=== PATIENT | male | born 1975 | race Caucasian/White ===

== ENCOUNTER → 2021-08-26 14:43 | Outpatient (CLI) | payer OTHER, SELFPAY | PROVIDERS: Visit Provider Nurse Practitioner | DX: U07.1 COVID-19 (principal) | CPT/HCPCS: C9803; U0003; U0005 ==

== ENCOUNTER 2022-11-05 16:40 | Emergency (ER) | payer OTHER, SELFPAY ==
[2022-11-05 16:45] VITALS: BMI 33.9
--- NOTE | 2022-11-05 16:46 | XR_ITS ---
PROCEDURE INFORMATION: Exam: XR Right Knee Exam date and time: 11/05/2022 4:45 PM Age: 47 years old Clinical indication: Pain; Knee; Right; Additional info: King knee pop TECHNIQUE: Imaging protocol: Radiologic exam of the right knee. Views: 3 views. COMPARISON: No relevant prior studies available. FINDINGS: Bones/joints: Osseous alignment is normal. No acute fracture or joint fluid. There is mild joint space narrowing and spurring in the patellofemoral compartment. No other arthritic change. Soft tissues: Normal. IMPRESSION: Mild degenerative changes of the patellofemoral compartment. No acute abnormality.
[2022-11-05 17:00] VITALS: BP 179/88; PULSE 84; RESP 20; TEMP 36.7; O2SAT 97; BMI 47.5
--- NOTE | 2022-11-05 17:37 | EXP.UTC ---
Discharge Plan Disposition Patient Disposition: Home, Self-Care Condition: Good Prescriptions Prescriptions: New prednisone [prednisone] 20 mg tablet 20 mg PO BID Qty: 10 0RF No Action lisinopril 40 MG tablet 40 mg PO DAILY oxycodone-acetaminophen 1 EACH tablet 1 tab PO Q8H PRN (Reason: Moderate To Severe Pain) 3 Days Qty: 10 0RF tamsulosin 0.4 MG capsule 0.4 mg PO HS 15 Days Qty: 15 0RF Referrals Follow up/Referrals: Provider,Referral, MD [Primary Care Provider] - See instructions Clinical Impressions Clinical Impression: Joint pain Instructions Patient Instructions: DI for Knee Pain Discharge ED Provider: Jose ([facility])Stephanie [facility] [place] HPI General Stated complaint: right knee pop and pain Mode of Arrival: Ambulatory Source of Information: Patient Limitations: No Limitations Time Seen by Provider: 11/05/22 17:37 Description of Symptoms (Recalled from Triage Doc. by RN): PATIENT C/O PAIN TO LEFT KNEE WITH WALKING. HE REPORTS FEELING A POP WHILE WALKING AND IT HAS BEEN HURTING SINCE HEENT Symptoms (Recalled from RN notes): No Resp Symptoms (Recalled from RN notes): No Skin Symptoms (Recalled from RN notes): No MS Symptoms (Recalled from RN notes): Yes Functional Status (Recalled from RN notes): WNL History of Present Illness Provider Complaint: 47 yr old male presents for left knee pain. pt states while walking yesterday he felt a pop and knee has been hurting since Related Data Home Medications Medication Instructions Recorded Confirmed lisinopril 40 mg tablet 40 mg PO DAILY Hypertension 04/05/19 11/05/22 Previous Rx's Medication Instructions Recorded oxycodone-acetaminophen 10 mg-325 1 tab PO Q8H PRN Moderate To 04/05/19 mg tablet Severe Pain 3 days #10 tabs tamsulosin 0.4 mg capsule 0.4 mg PO HS 15 days #15 caps 04/05/19 prednisone 20 mg tablet 20 mg PO BID #10 tabs 11/05/22 Allergies Allergy/AdvReac Type Severity Reaction Status Date / Time No Known Drug Allergies Allergy Unknown Verified 04/17/19 12:11 [NKDA] Worker's Comp Is this a Worker's Comp case?: [facility] Disclaimer: The information contained in this section may have been updated after the patient was seen, as this information can be updated by other users. Social History , [employer]) Smoking Status: Never smoker alcohol intake: never current occupational status: other Travel in the last 8 weeks: None ROS Obtained: Yes All systems reviewed & no additional complaints except as documented Constitutional Constitutional: Reports system reviewed and no additional complaints, except as documented and Reports as per HPI Eyes Eyes: Reports system reviewed and no additional complaints, except as documented and Reports as per HPI ENT Ears, Nose, Mouth, and Throat: Reports system reviewed and no additional complaints, except as documented Cardiovascular Cardiovascular: Reports system reviewed and no additional complaints, except as documented Respiratory Respiratory: Reports system reviewed and no additional complaints, except as documented Gastrointestinal Gastrointestingal: Reports system reviewed and no additional complaints, except as documented Musculoskeletal Musculoskeletal: Reports system reviewed and no additional complaints, except as documented, Reports as per HPI, Reports arthralgias, Reports joint swelling and Reports limited range of motion Integumentary/Breasts Skin/Breast: Reports system reviewed and no additional complaints, except as documented Neurologic Neurologic: Reports system reviewed and no additional complaints, except as documented Endocrine Endocrine: Reports system reviewed and no additional complaints, except as documented Physical Exam General General appearance: alert and in no apparent distress Head Head exam: atraumatic and normocephalic Eye Eye exam: Present normal appearance and PERRL ENT ENT exam: Pres
[2022-11-05 17:42] VITALS: BP 179/88; PULSE 84; RESP 20; TEMP 36.7; O2SAT 97
== END 2022-11-05 17:45 | disposition home or self-care (01) ==
PROVIDERS: Emergency Provider Nurse Practitioner Family
DX: M25.562 Pain in left knee (principal); X50.1XXA Overexertion from prolonged static or awkward postures, initial encounter
CPT/HCPCS: 73562; 99212; 99214; G0463

== ENCOUNTER → 2023-01-29 14:29 | Outpatient (CLI) | payer OTHER, SELFPAY ==
--- NOTE | 2023-01-29 14:32 | MR_ITS ---
FINAL REPORT CLINICAL HISTORY: KNEE PAIN. KNEE LOCKS UP. PAIN SUPERIOR TO PATELLA. NO INJURY OR TRAUMA FINDINGS: Multiplanar MR imaging of the right knee was performed without contrast. There is a tear of the body of the medial meniscus. Lateral meniscus is intact. The anterior and posterior cruciate ligaments are intact. There is a sprain of the medial collateral ligament. Lateral collateral ligament complex is intact. There is distal patellar tendinitis. No tendon tear is identified. There is no evidence of fracture. 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 Severe chondromalacia is also seen of the medial compartment where there are small osteochondral lesions of the medial femoral condyle and medial tibial plateau with associated bone marrow edema. A moderate sized joint effusion is seen. The musculature is intact. No soft tissue mass or cyst is identified. IMPRESSION: Tear of the body of the medial meniscus. Sprain of the MCL. Distal patellar tendinitis. Severe chondromalacia of the medial compartment with small osteochondral lesions of the medial femoral condyle and medial tibial plateau and associated bone marrow edema. Moderate joint effusion. Reviewed, Interpreted and Dictated by Ezio Manjarrez III, MD Transcribed by Dalia Garduno Authenticated and [facility]
== END ==
LOC: RAD 14:29
PROVIDERS: PCP Orthopaedic Surgery; Visit Provider Orthopaedic Surgery
DX: M25.561 Pain in right knee (principal)
CPT/HCPCS: 73721

== ENCOUNTER 2023-02-28 10:28 | Day surgery (SDC) | payer OTHER, SELFPAY ==
[2023-02-28] VITALS (7 sets, daily range): BP systolic 89–134; BP diastolic 40–79; PULSE 53–73; RESP 16–18; TEMP 36.1–36.8; O2SAT 92–99; BMI 45.1
--- NOTE | 2023-02-28 13:03 | P.PCN_ITS ---
Procedure: Date: 02/28/23 Patient Date of :: 1975 Procedure Performed:: Colonoscopy Indications:: High risk screening for a family history of colon cancer in a first degree relative age greater than 60 (mother) Performing Provider:: Benjamin Naylor MD Referring Provider:: Chan De La Torre MD Sedation:: See Rn records Procedure:: After placing the patient in the left lateral decubitus position, the colono scopy was gently inserted into the rectum and under direct visualization advanced to the cecum which was identified by transillumination in the right lower quadrant, identification of the ileocecal valve, appendiceal orifice, and cecal strap. Color, texture, mucosa, and anatomy of the colon were carefully examined with the scope. Preparation was good. Findings:: Anal canal: normal Rectum: Hemorrhoids Sigmoid colon: Diverticulosis Descending colon: Diverticulosis Splenic flexure: normal Transverse colon: normal without polyps or inflammatory changes Hepatic flexure: normal Ascending colon: normal without polyps or inflammatory changes Cecum: normal Terminal ileum: not visualized Impression: Left sided diverticulosis Recommendations:: Higher fiber diet Repeat colonoscopy in 5 years Complications:: none Estimated blood obtained (mL): 0 Colonoscopy Component Colonoscopy Component Was a colonoscopy performed during today's procedure?: Yes Recommended follow up colonoscopy of at least 10 years?: Yes
--- NOTE | 2023-02-28 15:32 | P.PN_ITS ---
[facility] Disclaimer: The information contained in this section may have been updated after the patient was seen, as this information can be updated by other users. Medical History (Updated 02/28/23 @ 11:31 by Cassy Almaguer RN) Hypertension Lung collapse Surgical History (Updated 02/28/23 @ 11:31 by Cassy Almaguer RN) H/O cystoscopy History of tonsillectomy Family History Mother Colon cancer Other Family history of cancer Family history of myocardial infarction Social History (Updated 02/28/23 @ 11:32 by Cassy Almaguer RN) Smoking Status: Never smoker alcohol intake: never substance use type: denies use current occupational status: employed Travel in the last 8 weeks: None household members: significant other housing: house lives independently: Yes marital status: single education level: high school caffeine: Yes agree to transfusion: No do you feel safe at home: Yes victim of physical abuse: No victim of emotional abuse: No victim of sexual abuse: No would you like helpful sources: No [facility] [place] Anesthesia Checklist Patient Identification Patient Identification: Arm Band and Family Structural Data Admitted From: Home Planned Operative Procedure/s: Colonoscopy Consent for Planned Operative Procedure(s) Verified: Yes Verified Documents: Surgical Consent and History and Physical NPO Status Verified Time NPO: 00:00 Additional verifications Patient : No Anesthesia Reactions: No Hx Blood Transfusions: No Blood Transfusion Reaction: No Cephalosporin Allergy: No Previous Colonoscopy: No Airway Assessment C-Spine Mobility Assessed: Yes TMJ Mobility Assessed: Yes Dentition: Good Dentition Neurological Assessment Level of Consciousness: Awake, Alert, Appropriate and Follows Commands Hx Seizures: No Numbness or tingling in extremities: No Anesthesia Plan Anesthesia Risk discussed: Yes ASA Class: II Anesthesia Type: MAC
== END 2023-02-28 14:07 | disposition home or self-care (01) ==
PROVIDERS: PCP Family Medicine; Visit Provider Internal Medicine
PROC: 0DJD8ZZ Inspection of Lower Intestinal Tract, Via Natural or Artificial Opening Endoscopic (ICD-10-PCS; CPT 45378; principal; 2023-02-28 11:30)
DX: Z12.11 Encounter for screening for malignant neoplasm of colon (principal); K57.30 Diverticulosis of large intestine without perforation or abscess without bleeding; Z80.0 Family history of malignant neoplasm of digestive organs; K64.8 Other hemorrhoids
CPT/HCPCS: 45378; J2704